=== PATIENT | male | born 1955 | race Asian ===

== ENCOUNTER 2024-11-12 18:51 | Emergency (ER) | payer MEDICARE, OTHER, SELFPAY ==
[2024-11-12 18:55] VITALS: BP 167/90
[2024-11-12 19:17] LABS: % Basophils 0.9 % (0-2); % Eosinophils 5.3 % (0-6); % Immature Granulocytes 0.4 % (0-0.5); % Lymphocytes 29.5 % (20.5-51.1); % Monocytes 10.8 % (1.7-9.3); % Neutrophils 53.1 % (42.2-75.2); Absolute Basophils 0.1 10^3/uL (0-0.2); Absolute Eosinophils 0.4 10^3/uL (0-0.7); Absolute Monocytes 0.7 10^3/uL (0.1-0.6); Absolute Neutrophils 3.6 10^3/uL (1.4-6.5); Hemoglobin 13.9 g/dL (13.0-18.0); Mean Corp Hgb Conc. 33.1 g/dL (33.0-37.0); Mean Corpuscular Hgb 26.1 pg (27.0-31.0); Mean Corpuscular Volume 78.9 fL (80.0-94.0); Mean Platelet Volume 9.1 fL (7.4-10.4); Nucleated Red Blood Cells % 0 % (-); Platelet Count 228 10^3/uL (130-400); Red Blood Cell Count 5.32 10^6/uL (4.70-6.10); Red Cell Dist. Width 13.2 % (11.5-14.5); White Blood Cell Count 6.8 10^3/uL (4.8-10.8)
[2024-11-12 19:33] LABS: ALT (SGPT) 19 U/L (0-50); AST (SGOT) 25 U/L (17-59); Albumin 4.5 g/dl (3.5-5.0); Alkaline Phosphatase 80 U/L (38-126); Blood Urea Nitrogen 8 mg/dl (9-20); Calcium 9.2 mg/dl (8.4-10.2); Carbon Dioxide 28 mmol/L (22-30); Chloride 106 mmol/L (98-107); Glucose 159 mg/dl (70-99); Potassium 4.8 mmol/L (3.5-5.1); Sodium 139 mmol/L (135-145); Total Bilirubin 0.7 mg/dl (0.2-1.3); Total Protein 7.4 g/dl (6.3-8.2); eGFR > 60.00
[2024-11-12 19:36] LABS: D-Dimer 0.45 ug/mlFEU (0.00-0.50)
[2024-11-12 19:42] LABS: Troponin I < 0.012 ng/ml
[2024-11-12 23:46] VITALS: BMI 31.8
[2024-11-12 23:47] VITALS: BP 172/92
--- NOTE | 2024-11-13 00:10 | ED.GENMED ---
History of Present Illness
<Lainey Hernandes PA-C - Last Filed: 11/13/24 02:11>
General
Chief Complaint: Chest Pain
Source: patient
Exam Limitations: none
Time Seen by Provider: 11/12/24 23:45
Nursing documentation reviewed up to this point in time: agreed with
History of Present Illness
History of Present Illness:
pt is a 69 y/o M with h/o NIDDM, BPH
here with intermittent R upper chest/shoulder pain since 2 pm today
he ate lunch normally no issues
he started spontaneously wincing in pain and grabbing his R shoulder
the pain lasts a second or two and resolves; it comes on sponanteously
he also felt alittle sob, and had cough and a little chills
not pleuritic
no leg swelling
he has had some chronic abd distension/pain x 3 years - it is unclear what this is due to
this doesn't seem different
he has been told he has fatty liver; former alochol use quite 8 years ago
also quit smoking 8 years ago
had cholecystectomy
pt traveled here from [facility] ion 10/28; he lives here
Past History
<Lainey Hernandse PA-C - Last Filed: 11/13/24 02:11>
Past History
ED Past Medical History: NIDDM and Other (fatty liver)
ED Past Surgical History: Appendectomy and Cholecystectomy
Social History
Tobacco: Former smoker
Alcohol: Former
Drug: None
Personal:
Living: with family
Review of Systems
<BIANCA Gil Last Filed: 11/13/24 02:11>
Review of Systems
Allergies reviewed?: Yes
All Other Systems: Not applicable
Phy Exam
<Lainey Hernandes PA-C - Last Filed: 11/13/24 02:11>
Physical Exam
Physical Exam:
GENERAL: Alert , in no apparent distress
EYE: pupils equal and reactive
NECK: Supple
ENT: o/p clr, mmm.
CARDIAC: Regular rate and rhythm .no murmur
chest wall normal inspection, no rash, no tenderness;
LUNGS: Clear breath sounds bilaterally, no acute respiratory distress, no wheezes/rales/rhonchi
ABDOMEN: Soft, prouberant, soft, ; mild RUQ tenderness; no r/g, no cvat, normal bowel sounds
NEUROLOGICAL: Alert and oriented, no focal neuro deficits
SKIN: Warm and dry, skin intact.
MUSCULOSKELETAL: No edema, well perfused. neg augie's sign
PSYCH: Normal and appropriate interaction.
Scores
<Lainey Hernaneds PA-C - Last Filed: 11/13/24 02:11>
Heart Score for Chest Pain Patients
STEMI patient?: No
History: Slightly or Non-Suspicious
ECG: Normal
Age: >/= 65 years
Risk Factors: 1 or 2 Risk Factors
Troponin: </= Normal Limit
Heart Score for Chest Pain Patients: 3
Heart Score Risk: 2.5% MACE over next 6 weeks
Course
<Lainey Hernandes PA-C - Last Filed: 11/13/24 02:11>
Orders/Labs/Results
Orders:
Orders
11/12/24 18:52
EKG [Electrocardiogram (*1)] Urgent
Reason for Study: Chest Pain
EKG- Treatment ONCE
11/12/24 19:11
Complete Blood Count/With Diff Urgent
Comprehensive Metabolic Panel Urgent
D-Dimer Urgent
Troponin I Urgent
11/12/24 23:58
COVID-19 Antigen Urgent
Source: Nasal Swab
NT-proBNP Urgent
Comment: ADDED
Troponin I Urgent
Influenza A+B Rapid Molecular Urgent
KAMLA Source: Nasal Swab
Specimen Description:
11/13/24 00:03
Add On- LAB Urgent
Tests Added?: bnp
11/13/24 00:07
CR Chest - 2 Views Urgent
Comment:
Reason For Exam: R shoulder/chestp ain, sob, crackles
11/13/24 00:58
Cyclobenzaprine HCl [Flexeril] 5 mg PO NOW STA
Ketorolac [Toradol] 30 mg IM NOW STA
Abnormal Lab Results
11/12/24
19:11
MCV 78.9 L fL
(80.0-94.0)
MCH 26.1 L pg
(27.0-31.0)
Absolute Monos (auto) 0.7 H 10^3/uL
(0.1-0.6)
Monocytes % 10.8 H %
(1.7-9.3)
BUN 8 L mg/dl
(9-20)
Glucose 159 H mg/dl
(70-99)
11/12/24 19:11
11/12/24 19:11
Vital Signs
Initial and Last Documented VS:
Initial Vital Signs
Temp Pulse Resp BP Pulse Ox
37.1 C 86 18 167/90 98
11/12/24 18:55 11/12/24 18:55 11/12/24 18:55 11/12/24 18:55 11/12/24 18:55
Last Documented Vital Signs
Temp Pulse Resp BP Pulse Ox
37.1 C 64 21 137/82 98
11/12/24 18:55 11/13/24 01:23 11/13/24 01:23 11/13/24 01:23 11/13/24 01:23
<Pedro Treadwell DO - Last Filed: 11/13/24 00:59>
Orders/Labs/Results
Orders:
Orders
11/12/24 18:52
EKG [Electrocardiogram (*1)] Urgent
Reason for Study: Chest Pain
EKG- Treatment ONCE
11/12/24 19:11
Complete Blood Count/With Diff Urgent
Comprehensive Metabolic Panel Urgent
D-Dimer Urgent
Troponin I Urgent
11/12/24 23:58
COVID-19 Antigen Urgent
Source: Nasal Swab
NT-proBNP Urgent
Comment: ADDED
Troponin I Urgent
Influenza A+B Rapid Molecular Urgent
KAMLA Source: Nasal Swab
Specimen Description:
11/13/24 00:03
Add On- LAB Urgent
Tests Added?: bnp
11/13/24 00:07
CR Chest - 2 Views Urgent
Comment:
Reason For Exam: R shoulder/chestp ain, sob, crackles
11/13/24 00:58
Cyclobenzaprine HCl [Flexeril] 5 mg PO NOW STA
Ketorolac [Toradol] 30 mg IM NOW STA
Abnormal Lab Results
11/12/24
19:11
MCV 78.9 L fL
(80.0-94.0)
MCH 26.1 L pg
(27.0-31.0)
Absolute Monos (auto) 0.7 H 10^3/uL
(0.1-0.6)
Monocytes % 10.8 H %
(1.7-9.3)
BUN 8 L mg/dl
(9-20)
Glucose 159 H mg/dl
(70-99)
11/12/24 19:11
11/12/24 19:11
Vital Signs
Initial and Last Documented VS:
Initial Vital Signs
Temp Pulse Resp BP Pulse Ox
37.1 C 86 18 167/90 98
11/12/24 18:55 11/12/24 18:55 11/12/24 18:55 11/12/24 18:55 11/12/24 18:55
Last Documented Vital Signs
Temp Pulse Resp BP Pulse Ox
37.1 C 64 21 137/82 98
11/12/24 18:55 11/13/24 01:23 11/13/24 01:23 11/13/24 01:23 11/13/24 01:23
<Lainey Hernandes PA-C - Last Filed: 11/13/24 02:11>
MDM/Problems Addressed
Differential Diagnosis Includes:
pleural effusion, pna, msk pain, nerve pain, shingles, PTX, choledhocholithiasis
MDM/Problems Addressed:
69 y/o M with h/o NIDDM
magi
here with R sided upper chest pain/shoulder pain since 2 pm, multiple episodes intense pain that comes on fo ra second or 2 and resovles
spontaneously
not pleuritic
reported some SOB but denied to me
no rash
no trauma
traveled from [place] 2 weeks ago
no h/o dvt/pe
developed cough tdaoy as well
looked well
afebilre
mildly hypertensive
lungs had cracles R base minimal
no tachypnea
mildly protuberant abdomen with mild tender ees in RUQ
pt says he has had that for 3 years
he doesn't have GB and has normal LFTs making choledochollithiais very unlikely
initially i had ordered US but asked dr. treadwell after he assessed the patient and he agreed that choledocho is very unlikely so we did not perform the US
pt's trop, d dimer, neg, EKG NORMAL
cxr indep reviewed no pna, no pleural effusion
early shingles vs. pleurisy vs. early URI vs. msk pain
dr. vigil recommended im toradol, po flexeril
d/c home
<Lainey Hernandes PA-C - Last Filed: 11/13/24 02:11>
*Critical Care Note
Total Time (30-74mins, 75-104mins- exclusive of procedures): Not Applicable
ED Attending Note
<Lainey Hernandes PA-C - Last Filed: 11/13/24 02:11>
-
Portions of this chart may have been created with voice recognition software.� Occasional wrong word or��sound alike� substitutions may have occurred due to the inherent limitations of voice recognition software.
<Pedro Treadwell DO - Last Filed: 11/13/24 00:59>
ED Attending Note
Patient seen and examined by attending physician: Yes
I performed the substantive portion of visit, reviewed & personally made and approve the management plan that is documented in note by myself or CARLOTA.: Yes
ED Attending Note:
I evaluated the patient at bedside. The patient's been having intermittent waves of pain in the right upper chest. He currently says the pain is not severe. EKG, troponin, D-dimer, BNP, all unremarkable. Will try Toradol and Flexeril.
Discharge Plan
Departure
Patient Disposition: Home (Routine Discharge)
Date of Disposition: 11/13/24
Time of Disposition: 01:15
Patient with high blood pressure during this ER visit?: Yes
Covid-19: Negative COVID-19
Discharge Problem:
Chest pain
Instructions: Chest Pain PCP Follow Up, BLOOD PRESSURE
Prescriptions:
New
cyclobenzaprine 5 mg tablet
5 mg PO BID PRN (Reason: muscle spasm) Qty: 8 0RF
No Action
metformin 500 mg Tablet
500 mg PO BID
finasteride 5 mg Tablet
5 mg PO DAILY
Referrals:
Canelo Quiroz MD [Family Provider] - Follow up in 2-3 days
Activity Restrictions/Additional Instructions:
WE ARE NOT SURE THE CAUSE OF YOUR PAIN
BUT IT IS VERY REASSURING THAT YOUR TESTING FOR ACUTE EMERGENCIES LIKE BLOOD CLOT, HEART ATTACK WERE NEGATIVE
THERE WAS NO SIGN OF INFECTION OR FLUID IN YOUR LUNG
YOUR COVID/FLU WERE NEGATIVE
PERHAPS THIS IS PAIN FROM AN EARLY INFECTION OR THIS COULD BE MUSUCLAR
YOU SHOULD ALSO WATCH FOR A RASH IN CASE OF SHINGLES
TAKE TYLENOL FOR PAIN 2 TIMES A DAY
FLEXERIL 5 MG 2 TIMES A DAY SAS NEEDED FOR MUSCLE SPASM
RETURN FO [facility]ANY CONCERN: FEVER, RASH, SEVERE PAIN, SHORTNESS OF BREATH, VOMITNG, ETC
YOUR BLOOD PRESSURE WAS MILDLY ELEVATED, HAVE THIS RECHECKED
Interventions
Interventions:
*Risk Screen - Suicide Last Done: 11/12/24 18:55
*General Assessment Last Done: 11/12/24 18:55
*Neglect/Abuse Screening Last Done: 11/12/24 23:46
*ED- Fall Risk Assessment Last Done: 11/12/24 23:46
*ED COVID-19 Vaccine History Last Done: 11/12/24 18:55
ED- Cardiac Assessment Last Done: 11/12/24 23:46
Discharge Date and Time
Print Language: SLOVAK
[2024-11-13 00:24] LABS: COVID-19 Antigen Negative (Negative)
[2024-11-13 00:41] LABS: NT-proBNP 41.2 pg/ml; Troponin I < 0.012 ng/ml
[2024-11-13 01:23] VITALS: BP 137/82
[2024-11-13] MEDS: TORADOL 30 MG IM (01:24)
[2024-11-13] MEDS: FLEXERIL 5 MG PO (01:24)
== END 2024-11-13 01:35 | disposition home or self-care (01) ==
LOC: EMR 18:51
PROVIDERS: Physician Assistant; Student in an Organized Health Care Education/Training Program; EMERGENCY PHYSICIAN Emergency Medicine; FAMILY PHYSICIAN Internal Medicine
DX: R07.89 Other chest pain (principal); M25.511 Pain in right shoulder; E11.9 Type 2 diabetes mellitus without complications; Z90.49 Acquired absence of other specified parts of digestive tract; Z87.891 Personal history of nicotine dependence; R05.9 Cough, unspecified; Z11.52 Encounter for screening for COVID-19
CPT/HCPCS: 99285; 96372; 71046; 80053; 83880; 84484; 85025; 85379; 87502; 87811; 93005